=== PATIENT | female | born 1945 | race Caucasian/White ===

== ENCOUNTER → 2021-02-04 13:40 | Outpatient (CLI) | payer MEDICARE, SELFPAY ==
[2021-02-04] MEDS: COVID-19 VACC #2, MRNA(MOD) 100 MCG/0.5 ML VIAL IM (13:48)
== END ==
PROVIDERS: Visit Provider Internal Medicine
DX: Z23 Encounter for immunization (principal)
CPT/HCPCS: 0012A; 91301